=== PATIENT | male | born 1995 | race Caucasian/White ===

== ENCOUNTER 2022-03-26 01:24 | Emergency (ER) | payer BC, SELFPAY ==
[2022-03-26 01:33] VITALS: BP 142/95; PULSE 81; RESP 16; TEMP 36.7; O2SAT 98; BMI 37.1
[2022-03-26] MEDS: cephALEXin 500 MG CAPSULE PO (02:44)
--- NOTE | 2022-03-26 04:15 | ED_ITS ---
HPI - Skin/Abscess/Foreign Bdy General Date Seen: 03/26/22 Chief complaint: Skin/Abscess/Foreign Body Stated complaint: Rt leg infection Time Seen by Provider: 03/26/22 01:47 Source: patient Mode of arrival: ambulatory Limitations: no limitations History of Present Illness HPI narrative: Patient is a 27-year-old male who presents after midnight with concerns of a swollen red area on his right inner thigh. This is been present for several days. He became nervous about it this evening and squeezed on it until some purulent material was expressed. After he was done draining the area he became worried that he should not have done that. He presents for further evaluation. He has had no fevers or chills. He does office work. No history of previous abscess. Related Data Previous Rx's Medication Instructions Recorded cephalexin 500 mg capsule 500 mg PO TID #30 caps 03/26/22 Allergies Allergy/AdvReac Type Severity Reaction Status Date / Time No Known Drug Allergies Allergy Verified 03/26/22 01:37 Review of Systems Status of ROS: Reports: 10 or more systems reviewed and unremarkable except as noted in History and below [facility] Medical History (Updated 03/26/22 @ 04:16 by Lang Fischer MD) Exogenous obesity Social History Smoking Status: Current every day smoker Do you use any of these nicotine containing products: Vaping Products How often do you have a drink containing alcohol: 2-3 times a week AUDIT-C Alcohol total score: 3 Non-prescribed substance use: denies use Exam Narrative: Exam Narrative: Vitals noted. HEENT: Conjunctiva clear. Neck is supple without adenopathy. Lungs: Clear to auscultation in all leyva. No wheezes, rales, rhonchi. Heart: Regular rate and rhythm without murmur. Abdomen: Soft and nontender. No guarding, rigidity, rebound. Bowel sounds are normal. No palpable masses. Extremities: No cyanosis or edema. Good distal pulses. Skin: He has a 2 cm warm, red, indurated area on the proximal right inner thigh. There is a punctate opening that has recently drained. He tells me the size is 60% smaller than before it drained. It is minimally tender. Neurologic: Awake, alert, fully oriented. Neurologic exam is nonfocal. Const: Vital Signs, click to edit/add: Vital Signs - 24 hr 08/10/22 01:33 Temperature 98.1 F Pulse Rate [Left P ulse Oximeter] 81 Respiratory Rate 16 Blood Pressure [Ri ght Upper Arm] 142/95 H Pulse Oximetry 98 Oxygen Delivery Me thod Room Air Course Course Hospital Course: Patient was seen and examined. No indication for incision and drainage at this time. Vital Signs Vital signs: Initial Vital Signs Temperature 98.1 F 03/26/22 01:33 Temperature Source Temporal Artery Scan 03/26/22 01:33 Pulse Rate 81 03/26/22 01:33 Respiratory Rate 16 03/26/22 01:33 Blood Pressure 142/95 H 03/26/22 01:33 Blood Pressure Mean 110 03/26/22 01:33 Blood Pressure Position Sitting 03/26/22 01:33 Pulse Oximetry 98 03/26/22 01:33 Oxygen Delivery Method 03/26/22 01:33 Vital Signs Temperature 98.1 F 03/26/22 01:33 Pulse Rate 81 03/26/22 01:33 Respiratory Rate 16 03/26/22 01:33 Blood Pressure 142/95 H 03/26/22 01:33 Pulse Oximetry 98 03/26/22 01:33 Oxygen Delivery Method 03/26/22 01:33 Temperature 98.1 F 03/26/22 01:33 Pulse Rate 81 03/26/22 01:33 Respiratory Rate 16 03/26/22 01:33 Blood Pressure 142/95 H 03/26/22 01:33 Pulse Oximetry 98 03/26/22 01:33 Oxygen Delivery Method 03/26/22 01:33 Discharge Plan Discharge Clinical Impression: Abscess of skin or subcutaneous tissue Patient Disposition: Home, Self-Care Condition: Improved Additional Instructions: Keflex 500 mg 3 times daily for 10 days. Hot packs. Gently express the contents of the abscess. Follow-up if worsening or not improving. Prescriptions: New cephalexin 500 mg capsule 500 mg PO TID Qty: 30 0RF Stand Alone Forms: MyHealth Info Instructions
== END 2022-03-26 02:47 | disposition home or self-care (01) ==
LOC: ED 02:46
PROVIDERS: Emergency Provider Family Medicine
DX: L02.415 Cutaneous abscess of right lower limb (principal)
CPT/HCPCS: 99281; 99284; A9270